=== PATIENT | female | born 1995 | race Caucasian/White ===

== ENCOUNTER → 2020-02-03 | Outpatient (CLI) | payer BC ==
[~2020-02-03] MED LIST: SINCALIDE 2.4 MCG in IV NORMAL SALINE 50ML 30 ML IV ONE
--- NOTE | 2020-02-03 09:00 | RAD ---
ABDOMEN LTD History: Nausea, epigastric pain Comparison: None. Findings: Multiple sonographic images of the abdomen are submitted. Pancreas is not well-visualized due to bowel gas. Inferior vena cava is also not well visualized in its entirety due to bowel gas although segmentally seen. There is diffuse coarsening of the echotexture of the liver. Right lobe liver measured 19.4 cm longitudinal. Gallbladder is present without demonstrable intraluminal abnormality, wall thickening, or pericholecystic fluid. Right kidney measured 10.6 x 6.3 x 6 cm, no hydronephrosis. Common bile duct is within normal limits about 0.3 cm. Impression: 1. There is hepatic steatosis and mild hepatomegaly. Electronically signed by: Stewart Harper MD (02/03/2020 8:57 AM) [id number]
--- NOTE | 2020-02-03 10:15 | RAD ---
HEPATOBILIARY SCAN WITH EJECTION FRACTION 02/03/2020 10:11 AM History: Nausea, epigastric pain. Procedure: Serial static images are obtained of the liver and biliary system in the frontal projection following IV administration of 5.5 mCi of Technetium 99m Choletec. After filling of the gallbladder, 2.4 mcg of sincalide were infused over 30 minutes and dynamic imaging continued over this period. The gallbladder ejection fraction was calculated. Findings: There is prompt hepatic clearance of tracer from the blood pool. There is homogeneous distribution throughout the liver. The gallbladder ejection fraction measures 29% (normal gallbladder EF is 35% or greater). IMPRESSION: 1. The cystic duct and common bile duct are patent. Negative for acute cholecystitis. 2. The gallbladder ejection fraction is abnormally low measuring 29%. Findings may indicate chronic cholecystitis or gallbladder dyskinesia. Electronically signed by: Maverick Ferrer MD (02/03/2020 10:12 AM) [id number]
== END | disposition home or self-care (01) ==
LOC: US 07:06
PROVIDERS: ATTEND Internal Medicine Gastroenterology
DX: K76.0 Fatty (change of) liver, not elsewhere classified (principal); R16.0 Hepatomegaly, not elsewhere classified; R11.0 Nausea
CPT/HCPCS: 76705; 78227; A9537

== ENCOUNTER → 2020-02-24 | Outpatient (CLI) | payer BC ==
[~2020-02-24] MED LIST changes: +OXYC-325 PO; -SINCALIDE 2.4 MCG in IV NORMAL SALINE 50ML 30 ML IV ONE
== END | disposition home or self-care (01) ==
LOC: LAB 14:54
PROVIDERS: ATTEND Surgery
DX: Z01.812 Encounter for preprocedural laboratory examination (principal); K21.9 Gastro-esophageal reflux disease without esophagitis; Z20.828 Contact with and (suspected) exposure to other viral communicable diseases
CPT/HCPCS: U0003-CS

== ENCOUNTER 2020-02-29 06:04 | Day surgery (SDC) | payer BC ==
[~2020-02-29] VITALS: Ht 162.6 cm; Wt 123.0 kg
[~2020-02-29 06:04] MED LIST changes: -OXYC-325 PO; +ceFAZolin SODIUM 3 GM in IV DEXTROSE 5% 100ML 100 ML IV PRN
[2020-02-29] MEDS ORDERED: LIDOCAINE 2% PF 5 ML VIAL. ONE (06:46)
[2020-02-29] MEDS ORDERED: DEXAMETHASONE SOD PHOS 4 MG/ML VIAL ONE (06:46)
[2020-02-29] MEDS ORDERED: PROPOFOL 10 MG/ML (20ML) VIAL. IV ONE (06:46)
[2020-02-29] MEDS ORDERED: ROCURONIUM 50 MG/5 ML VIAL. ONE (06:46)
[2020-02-29] MEDS ORDERED: ONDANSETRON PF 4 MG/2 ML VIAL. ONE (06:46)
[2020-02-29] MEDS ORDERED: fentaNYL PF VIAL 100 MCG/2 ML VIAL IV PRN ×2 (07:00)
[2020-02-29] MEDS ORDERED: HYDROmorphone 2 MG/ML VIAL IV PRN (07:00)
[2020-02-29] MEDS ORDERED: LIDOCAINE 1% PF 2 ML VIAL. ID PRN (07:00)
[2020-02-29] MEDS ORDERED: SURGICEL HEMOSTAT 4X8 EACH. ONE (07:00)
[2020-02-29] MEDS ORDERED: BUPIVACAINE MPF 0.5% 30 ML VIAL. ONE (07:00)
[2020-02-29] MEDS ORDERED: IV RINGERS,LACTATED 1000ML 1,000 ML IV SCH (07:00)
[2020-02-29] MEDS ORDERED: ONDANSETRON PF 4 MG/2 ML VIAL. IV PRN (07:00)
[2020-02-29] MEDS ORDERED: IOHEXOL 300 MG/ML 50 ML VIAL. ONE (07:00)
[2020-02-29] MEDS ORDERED: MIDAZOLAM HCL/PF 2 MG/2 ML VIAL. ONE (07:02)
[2020-02-29] MEDS ORDERED: fentaNYL PF VIAL 100 MCG/2 ML VIAL ONE ×2 (07:02→08:43)
[2020-02-29] MEDS ORDERED: SUCCINYLCHOLINE 200 MG/10 ML VIAL. ONE (07:13)
[2020-02-29] MEDS ORDERED: FAMOTIDINE 20 MG/2 ML VIAL ONE (07:13)
[2020-02-29] MEDS ORDERED: KETOROLAC 30 MG/ML VIAL. ONE (08:44)
[2020-02-29] MEDS ORDERED: GLYCOPYRROLATE 1 MG/5 ML VIAL. ONE (08:47)
[2020-02-29] MEDS ORDERED: NEOSTIGMINE METHYLSULFATE 5 MG/5 ML SYRINGE. ONE (08:47)
--- NOTE | 2020-02-29 09:06 | PDOC4 ---
Operative Note Operative Note Operative Note: Preoperative Diagnosis: Biliary dyskinesia Postoperative Diagnosis: Same Procedure: Laparoscopic cholecystectomy with intraoperative cholangiogram Surgeons: Gabriel Anesthesia: Gen. Estimated Blood Loss: 10 mL Specimen: Gallbladder to pathology Drains: None Complications: None Indications: The patient is a 24-year-old female who was referred with suspected biliary dyskinesia. Surgical treatment was offered by means of a laparoscopic cholecystectomy. The risks of surgery were discussed which include bleeding, infection, bile duct injury, bile leak, pain, the potential for additional surgeries or procedures. The patient understands and would like to proceed. Description: The patient was taken to the operating room and laid supine on the operating table. General anesthesia was performed. The abdomen was prepped with ChloraPrep and draped in a standard surgical fashion. A small infraumbilical incision was made with a scalpel. The Veress needle was then inserted and a pneumoperitoneum was then created. A 5 mm trocar was then inserted and the laparoscope was introduced. In the upper midabdomen a 5 mm trocar was inserted; in the right upper quadrant one 5 mm trocar and one 2.3 mm mini lap grasper were inserted. The gallbladder was retracted cephalad. The cystic duct was dissected free from surrounding tissues. One clip was placed on the duct near the gallbladder junction. An opening was made in the duct and a cholangiocatheter placed within and secured with a clip. Using contrast dye and fluoroscopy an intraoperative cholangiogram was performed that appeared unremarkable. The clip and catheter were then withdrawn. Three clips were placed on the cystic duct and it was divided. The cystic artery was then identified, dissected free, doubly clipped and divided as well. The gallbladder was then mobilized away from the liver with cautery. The umbilical 5 millimeter trocar was exchanged for an 11 millimeter trocar. The gallbladder was then placed in an endoscopic bag and extracted at the umbilical trocar site. The fascia there was closed with an 0 Vicryl suture. All blood and irrigation fluid was suctioned and hemostasis was good. The remaining ports were removed and the pneumoperitoneum was relieved. The skin incisions were injected with half percent Marcaine, and all were closed using 4-0 Monocryl suture. Steri-Strips and dressings were then applied. The patient tolerated the procedure well and was sent to the recovery room in stable condition. At the end of the case all counts were correct. SONAM JENSEN MD Feb 29, 2020 09:06
[2020-02-29] MEDS ORDERED: oxyCODONE/APAP 5/325 1 TAB TABLET PO PRN (09:15)
[2020-02-29] MEDS ORDERED: oxyCODONE/APAP 5/325 1 TAB TABLET PO ONE (09:15)
--- NOTE | 2020-02-29 09:16 | RAD ---
Examination: CHOLANGIOGRAM INTRAOPERATIVE History: Reason: CHOLANGIOGRAMS DONE IN OR WITH C-ARM,FL TIME =.11 MIN 2 IMAGES / Spl. Instructions: / History: Comparison/Correlation: None Findings: A total of 2 intraoperative cholangiogram images were obtained. Fluoroscopy was utilized for 0.11 minutes. Cholecystectomy is evident. Contrast is noted within the cystic duct remnant. Common bile duct is unremarkable with no stricture or definite suspicious persistent filling defect. Contrast is noted within the duodenum. Impression: Cholecystectomy. No suspicious filling defect or stricture identified. Electronically signed by: Robin Bergeron MD (02/29/2020 9:13 AM) [id number]
[2020-02-29] MEDS ORDERED: MORPHINE SULFATE 2 MG/ML VIAL. ONE (09:21)
[2020-02-29] MEDS: MORPHINE SULFATE 2 MG/ML VIAL. IV PRN ×2 (09:26→09:30)
[2020-02-29] MEDS ORDERED: SEVOFLURANE 61 TO 120 MINUTES. IH ONE (09:27)
[2020-02-29] MEDS: PROCHLORPERAZINE 10 MG/2 ML VIAL. IV PRN ×2 (09:28→09:44)
[2020-02-29] MEDS ORDERED: HYDROmorphone 2 MG/ML VIAL ONE (09:37)
[2020-02-29] MEDS ORDERED: OXYC-325 PO (09:43)
--- NOTE | 2020-02-29 10:30 | DISCH ---
DISCHARGE INSTRUCTIONS Condition on Discharge Condition on Discharge: Stable Activity After Discharge Activity Instructions for Disc: Other, see below (No lifting over 20 lbs X 2 weeks) Diet after Discharge Diet after Discharge: Regular Wound Incision Care Wound/Incision Care: Other, see below (may remove bandaids tomorrow and shower) Follow-Up Follow up with: Dr Jensen in 2 weeks, call for appt [phone] SONAM JENSEN MD Feb 29, 2020 10:30
[2020-02-29 10:35] VITALS: BP 107/40
--- NOTE | 2020-03-02 16:07 | PATHOLOGY ---
[facility] Accession Number: [id number] . 01 Material submitted: . gallbladder - GALLBLADDER . 01 Clinical history: . BILIARY DYSKINESIA . 02 Diagnosis: Gallbladder, laparoscopic cholecytectomy: - Chronic cholecystitis. - Cholesterolosis. (JPM:marifer; 03/02/2020) S 03/02/2020 1056 Local . 02 Comment: There are no calculi identified. (JPM:marifer; 03/02/2020) . 02 Electronically signed: . Ethan Lane MD, Pathologist NPI- [id number] . 01 Gross description: . The specimen is received in formalin, labeled "Blancachari Beckfordt, gallbladder". Received is an intact gallbladder measuring 6.7 x 2.7 x 2.4 cm in greatest dimensions displaying a blue-gordon, bile-stained serosal surface. Opening the specimen reveals a velvety, bile-stained mucosa with a gallbladder wall thickness of 0.1 cm. Calculi are not present, and no masses or lesions are noted grossly. Tar Worker sections, to include the proximal margin, are submitted in cassette A1. (CAA; 03/01/2020) QAC/QAC 03/02/2020 1054 Local . 02 Pathologist provided ICD-10: K81.1, K82.4 . 02 CPT . 178530 Specimen Comment: A courtesy copy of this report has been sent to [phone] Specimen Comment: Report sent to Performed at: 01 [facility] [address], [place] [id number] MD Mp Barnett MD Phone: [phone] Performed at: 02 [facility] [place] [id number] MD Ethan Lane MD Phone: [phone]
== END 2020-02-29 11:05 | disposition home or self-care (01) ==
LOC: SURG 06:04
PROVIDERS: ATTEND Surgery
DX: K81.1 Chronic cholecystitis (principal); K82.8 Other specified diseases of gallbladder; Z88.8 Allergy status to other drugs, medicaments and biological substances; Z79.899 Other long term (current) drug therapy
CPT/HCPCS: 47563; 74300; 81025; A7015; J0330; J0780; J1100; J1170; J1885; J2250; J2270; J2405; J2704; J2710; J3010; J3490; J7030; J7120; Q9967